=== PATIENT | male | born 1985 | race Caucasian/White ===

== ENCOUNTER 2023-05-22 17:22 | Emergency (ER) | payer OTHER, SELFPAY ==
[2023-05-22 17:28] VITALS: BP 135/98; PULSE 77; TEMP 36.9; O2SAT 98; BMI 21.1
--- NOTE | 2023-05-22 17:44 | ED_ITS ---
HPI - Animal Bite General Chief Complaint: Animal Bite Stated Complaint: upper Injury Dog Bite Time Seen by Provider: 05/22/23 17:26 Source: patient Mode of arrival: walk-in Limitations: no limitations History of Present Illness HPI narrative: 38-year-old male with bitten by dog on his right hand and he presents for evaluation of that issue as well as pain on the dorsum of his foot where he kicked the dog. This happened just before coming into the emergency department and he had a tetanus shot within the last 5 years. The pain in his foot is severe. Related Data Previous Rx's ?Medication ?Instructions ?Recorded amoxicillin 875 mg-potassium 1 tab PO BID #10 tabs 05/22/23 clavulanate 125 mg tablet Allergies Allergy/AdvReac Type Severity Reaction Status Date / Time No Known Drug Allergies Allergy Verified 05/22/23 17:28 Review of Systems ROS Narrative A ten point review of systems is negative except as noted above. Exam Narrative Exam Narrative: Nurses note and vital signs reviewed and patient is not hypoxic. General: The patient appears well and in no apparent distress. Patient is resting comfortably on cart. Skin: Warm, dry, no pallor noted. There is no rash noted. Head: Normocephalic, atraumatic Eye: Normal conjunctiva, no drainage Ears, Nose, Mouth, and Throat: oral mucosa is moist. Nares patent. Cardiovascular: Regular Rate and Rhythm Respiratory: Patient is in no distress, no accessory muscle use, lungs are clear to auscultation, no wheezing, rales or rhonchi Back: non-tender GI: Soft and nontender Musculoskeletal: He has a few superficial puncture type conteh on the dorsum of his left hand. At the base of the middle finger on the flexor side is a alejo perficial laceration as well. All fingers have full range of motion. He has some tenderness on the dorsum of his right foot. Skin intact. No bruising noted. Neurological: A&O, normal speech Psychiatric: Cooperative Constitutional Vital Signs, click to edit/add: Last Vital Signs Temp 98.4 F 05/22/23 17:28 Pulse 77 05/22/23 17:28 Resp 18 05/22/23 17:28 BP 135/98 H 05/22/23 17:28 Pulse Ox 98 05/22/23 17:28 O2 Del Method Room Air 05/22/23 17:28 Course Vital Signs Vital signs: Vital Signs Temperature 98.4 F 05/22/23 17:28 Pulse Rate 77 05/22/23 17:28 Respiratory Rate 18 05/22/23 17:28 Blood Pressure 135/98 H 05/22/23 17:28 Pulse Oximetry 98 05/22/23 17:28 Oxygen Delivery Method Room Air 05/22/23 17:28 Temperature 98.4 F 05/22/23 17:28 Pulse Rate 77 05/22/23 17:28 Respiratory Rate 18 05/22/23 17:28 Blood Pressure 135/98 H 05/22/23 17:28 Pulse Oximetry 98 05/22/23 17:28 Oxygen Delivery Method Room Air 05/22/23 17:28 MDM - Animal Bite MDM Narrative Medical decision making narrative: X-ray of the foot on my interpretation shows no acute findings. Sutures not indicated for his hands and he is placed on prophylactic Augmentin. Tetanus status is already up-to-date and his wounds were cleansed and dressed. Treatment diagnosis and follow-up were discussed with the patient. Differential Diagnosis Differential diagnosis: Likely dog bite and other (Foot contusion) Imaging Data Right foot x-ray: My impression: No acute findings Discharge Plan Discharge Stand Alone Forms: Portal Instructions Chief Complaint: Animal Bite Clinical Impression: Dog bite, Contusion of foot, right Patient Disposition: Home, Self-Care Time of Disposition Decision: 18:10 Condition: Good Mode of Transportation: Private Vehicle Prescriptions / Home Meds: New amoxicillin-pot clavulanate 875-125 mg tablet 1 tab PO BID Qty: 10 0RF Print Language: [place] Instructions: Animal Bite (ED), Foot Contusion (ED) Referrals: Physician,Non-Staff, MD [Primary Care Provider] - 1 week
--- NOTE | 2023-05-22 17:56 | XR_ITS ---
The [address] [address] Patient Name: LORENZA YANG MRN: [id number] date: 1985 Sex: M Assigned Patient Location: ER Current Patient Location: ED.MAIN Accession/Order Number: [id number] Exam Date: 05/22/2023 17:51 Report Date: 05/22/2023 18:58 At the request of: HORTENSIA NEWBERRY Procedure: XR foot RT min 3V EXAM: XR foot RT min 3V TECHNIQUE: AP, lateral and oblique views right foot HISTORY: Kicked a dog, pain on dorsum COMPARISON: None. FINDINGS: No acute fracture or dislocation. The soft tissues are unremarkable. There are no significant arthritic changes. XR/XR foot RT min 3V IMPRESSION: No fracture Electronically authenticated by: CASH MCCLAIN Date: 05/22/2023 18:58
== END 2023-05-22 18:25 | disposition home or self-care (01) ==
PROVIDERS: Emergency Provider Emergency Medicine
DX: S60.572A Other superficial bite of hand of left hand, initial encounter (principal); W54.0XXA Bitten by dog, initial encounter; S90.31XA Contusion of right foot, initial encounter; W22.8XXA Striking against or struck by other objects, initial encounter
CPT/HCPCS: 73630; 99283